=== PATIENT | male | born 1950 | race Caucasian/White ===

== ENCOUNTER 2017-10-09 19:53 | Emergency (ER) | payer OTHER ==
[~2017-10-09 19:53] MED LIST: ASPIRIN/DIPYRIDAMOLE; ATORVASTATIN CA80 MG PO; EPA FISH OIL1000 MG PO; GLIMEPIRIDE4 MG PO; HYD25 PO; JANUVIA100 MG PO; METOPROLOL50 MG PO; NIACIN500 M2 PO; PRI20 PO; ZES20 PO
[2017-10-09 22:55] VITALS: BP 157/74
== END 2017-10-09 22:55 | disposition home or self-care (01) ==
LOC: ED 19:53
DX: M62.838 Other muscle spasm (principal); G44.209 Tension-type headache, unspecified, not intractable; G47.30 Sleep apnea, unspecified; E78.00 Pure hypercholesterolemia, unspecified; I10 Essential (primary) hypertension; R47.81 Slurred speech; E11.9 Type 2 diabetes mellitus without complications; Z86.73 Personal history of transient ischemic attack (TIA), and cerebral infarction without residual deficits
CPT/HCPCS: 82962; J2001